=== PATIENT | female | born 1975 | race Caucasian/White ===

== ENCOUNTER 2017-05-17 15:19 | Emergency (ER) | payer OTHER ==
[~2017-05-17] VITALS: Ht 162.6 cm; Wt 83.3 kg
[~2017-05-17 15:19] MED LIST: IBUP-232 PO; ZOLO50TA PO
[2017-05-17 15:37] VITALS: BP 88/61; PULSE 118; RESP 16; TEMP 97.9; O2SAT 99
[2017-05-17] MEDS ORDERED: SODIUM CHLOR 0.9% 1000 ML INJ 1,000 ML IV SCH ×2 (15:59→16:47)
[2017-05-17] MEDS ORDERED: ONDANSETRON HCL 4 MG/2 ML VIAL IVP ONE ×2 (16:00→17:00)
[2017-05-17] MEDS ORDERED: MORPHINE SULFATE 4 MG/ML INJ IV PUSH ONE (16:00)
[2017-05-17] MEDS ORDERED: SODIUM CHLORIDE 0.9% FLUSH 10 ML FLUSH IV FLUSH PRN (16:00)
--- NOTE | 2017-05-17 16:08 | PD ---
HPI Chief Complaint: GI Complaint Time Seen by Provider: 15:59 Travel History International Travel<30 days: No Contact w/Intl Traveler<30days: No Traveled to known affect area: No History of Present Illness HPI C/O DIFFUSE ABD PAIN ONSET AT 0500 TODAY, 02/16, ASSOC WITH N/V/D/, NOT IMPROVING....NO ALLEVIATING/AGGRAVATING FACTORS PRESENTLY. ASSOCIATED SYMPTOMS OF FEVER/COUGH/RUNNY NOSE/GARCIA/CP/BACK PAIN..... ALL: PROMETHAZINE PMHX: PSHX: PFSH Past Medical History Anxiety: Yes Depression: Yes Diminished Hearing: No Genitourinary: Yes (FREQUENT UTI) Immunizations Current: Yes ?: Not LMP: 3 weeks ago Social History Alcohol Use: Yes (occas. mix drinks) Tobacco Use: No Substance Use: No Allergies-Medications (Allergen,Severity, Reaction): Coded Allergies: promethazine (Unverified Allergy, Mild, VOMITING/ ANXIOUS, 05/17/17) Reported Meds & Prescriptions Reported Meds & Active Scripts Active Reported Zoloft (Sertraline HCl) 50 Mg Tab 50 Mg PO DAILY Review of Systems Except as stated in HPI: all other systems reviewed are Neg General / Constitutional: No: Fever Eyes: No: Visual changes HENT: No: Headaches Cardiovascular: No: Chest Pain or Discomfort Respiratory: No: Shortness of Breath Gastrointestinal: Positive: Nausea, Vomiting, Diarrhea, Abdominal Pain Genitourinary: No: Dysuria Musculoskeletal: No: Pain Skin: No Rash Neurologic: No: Weakness Psychiatric: No: Depression Endocrine: No: Polydipsia Hematologic/Lymphatic: No: Easy Bruising Physical Exam Narrative GENERAL: PATIENT ACTIVELY DRY HEAVING AT BEDSIDE SKIN: Warm and dry. HEAD: Atraumatic. Normocephalic. EYES: Pupils equal and round. No scleral icterus. No injection or drainage. ENT: No nasal bleeding or discharge. Mucous membranes pink and moist. NECK: Trachea midline. No JVD. CARDIOVASCULAR: Regular rate and rhythm. RESPIRATORY: No accessory muscle use. Clear to auscultation. Breath sounds equal bilaterally. GASTROINTESTINAL: Abdomen soft, DIFFUSE ABD TT PERCUSSION, nondistended. MUSCULOSKELETAL: Extremities without clubbing, cyanosis, or edema. No obvious deformities. NEUROLOGICAL: Awake and alert. No obvious cranial nerve deficits. Motor grossly within normal limits. Five out of 5 muscle strength in the arms and legs. Normal speech. PSYCHIATRIC: Appropriate mood and affect; insight and judgment normal. Data Data Last Documented VS Vital Signs Date Time Temp Pulse Resp B/P (MAP) Pulse Ox O2 Delivery O2 Flow Rate FiO2 05/17/17 17:51 98.3 84 18 109/63 (78) 98 Room Air Orders Orders Complete Blood Count With Diff (05/17/17 15:59) Comprehensive Metabolic Panel (05/17/17 15:59) Lipase (05/17/17 15:59) Urinalysis - C+S If Indicated (05/17/17 15:59) Ct Abd/Pel W/O Iv Contrast (05/17/17 15:59) Iv Access Insert/Monitor (05/17/17 15:59) Ecg Monitoring (05/17/17 15:59) Oximetry (05/17/17 15:59) NPO (05/17/17 15:59) Morphine Inj (Morphine Inj) (05/17/17 16:00) Ondansetron Inj (Zofran Inj) (05/17/17 16:00) Sodium Chlor 0.9% 1000 Ml Inj (Ns 1000 M (05/17/17 15:59) Sodium Chloride 0.9% Flush (Ns Flush) (05/17/17 16:00) Electrocardiogram (05/17/17 15:59) Ed Urine Pregnancytest Poc (05/17/17 15:59) Hydromorphone Pf Inj (Dilaudid Pf Inj) (05/17/17 17:00) Ondansetron Inj (Zofran Inj) (05/17/17 17:00) Metronidazole 500 Mg Inj (Flagyl 500 Mg (05/17/17 18:00) Ceftriaxone Inj (Rocephin Inj) (05/17/17 17:00) Sodium Chlor 0.9% 1000 Ml Inj (Ns 1000 M (05/17/17 16:47) Bhcg Screen Qualitative (05/17/17 16:10) Labs Laboratory Tests Test 05/17/17 16:10 05/17/17 17:30 White Blood Count 22.0 TH/MM3 Red Blood Count 5.60 MIL/MM3 Hemoglobin 15.6 GM/DL Hematocrit 46.7 % Mean Corpuscular Volume 83.3 FL Mean Corpuscular Hemoglobin 27.8 PG Mean Corpuscular Hemoglobin Concent 33.3 % Red Cell Distribution Width 12.1 % Platelet Count 260 TH/MM3 Mean Platelet Volume 8.3 FL Neutrophils (%) (Auto) 90.6 % Lymphocytes (%) (Auto) 2.6 % Monocytes (%) (Auto) 3.0 % Eosinophils (%) (Auto) 0.0 % Basophils (%) (Auto) 3.8 % Neutrophils # (Auto) 19.9 TH/MM3 Lymphocytes # (Auto) 0.6 TH/MM3 Monocytes # (Auto) 0.7 TH/MM3 Eosinophils # (Auto) 0.0 TH/MM3 Basophils # (Auto) 0.8 TH/MM3 CBC Comment AUTO DIFF Differential Total Cells Counted 100 Neutrophils % (Manual) 88 % Band Neutrophils % 4 % Lymphocytes % 2 % Monocytes % 6 % Neutrophils # (Manual) 20.2 TH/MM3 Differential Comment FINAL DIFF MANUAL Blood Urea Nitrogen 27 MG/DL Creatinine 0.94 MG/DL Random Glucose 158 MG/DL Total Protein 8.5 GM/DL Albumin 4.2 GM/DL Calcium Level 9.8 MG/DL Alkaline Phosphatase 91 U/L Aspartate Amino Transf (AST/SGOT) 28 U/L Alanine Aminotransferase (ALT/SGPT) 33 U/L Total Bilirubin 1.2 MG/DL Sodium Level 136 MEQ/L Potassium Level 4.0 MEQ/L Chloride Level 102 MEQ/L Carbon Dioxide Level 19.5 MEQ/L Anion Gap 15 MEQ/L Estimat Glomerular Filtration Rate 66 ML/MIN Lipase 62 U/L Beta HCG, Qualitative LESS THAN 1 MIU/ML Urine Collection Type CLEAN CATCH Urine Color YELLOW Urine Turbidity CLEAR Urine pH 6.0 Urine Specific [place] GREATER THAN 1.035 Urine Protein NEG mg/dL Urine Glucose (UA) NEG mg/dL Urine Ketones 40 mg/dL Urine Occult Blood SMALL Urine Nitrite NEG Urine Bilirubin NEG Urine Leukocyte Esterase NEG Urine RBC 0-3 /hpf Urine WBC 0-2 /hpf Urine Squamous Epithelial Cells 0-5 /hpf Microscopic Urinalysis Comment CULT NOT INDICATED MDM Medical Decision Making Medical Screen Exam Complete: Yes Emergency Medical Condition: Yes Medical Record Reviewed: Yes Differential Diagnosis GASTROENTERITIS V PANCREATITIS V HEPATITIS V ELECTROLYTE ABNL Narrative Course LEUKOCYTOSIS WITH NEUTROPHILIA SUGGESTIVE OF BACTERIAL INFECTION...NORMAL LIPASE /LFT'S.... Diagnosis Primary Impression: ACUTE BACTERIAL GASTROENTERITIS Patient Instructions: Gastroenteritis (ED), General Instructions Scripts Codeine-Acetaminophen (Codeine-Acetaminophen) 30-300 mg Tab 1 TAB PO Q4H Y for PAIN for 3 Days, #18 TAB 0 Refills Prov: Krunal Calhoun MD 05/17/17 Ondansetron Odt (Zofran Odt) 4 Mg Tab 4 MG SL Q6HR Y for Nausea/Vomiting, #20 TAB 0 Refills Prov: Krunal Calhoun MD 05/17/17 Metronidazole (Flagyl) 500 Mg Tab 500 MG PO TID for Infection for 5 Days, #15 TAB 0 Refills Prov: Krunal Calhoun MD 05/17/17 Ciprofloxacin (Cipro) 500 Mg Tab 500 MG PO BID for Infection for 5 Days, #10 TAB 0 Refills Prov: Krunal Calhoun MD 05/17/17 Disposition: 01 DISCHARGE HOME Condition: Stable Krunal Calhoun MD May 17, 2017 16:08
[2017-05-17 16:18] LABS: AUTOMATED NEUTROPHIL # 19.9 TH/MM3 (1.8-7.7); BASOPHIL # 0.8 TH/MM3 (0-0.2); BASOPHIL % 3.8 % (0.0-2.0); HEMATOCRIT 46.7 % (35.0-46.0); LYMPH % 2.6 % (9.0-44.0); LYMPHOCYTE # 0.6 TH/MM3 (1.0-4.8); MEAN CELL VOLUME 83.3 FL (80.0-100.0); MEAN CORPUSCULAR HEMOGLOBIN 27.8 PG (27.0-34.0); MEAN CORPUSCULAR HGB CONC 33.3 % (32.0-36.0); NEUT % 90.6 % (16.0-70.0); PLATELET COUNT 260 TH/MM3 (150-450); RED CELL DISTRIBUTION WIDTH 12.1 % (11.6-17.2)
[2017-05-17 16:23] VITALS: O2SAT 100
[2017-05-17 16:24] LABS: HEMO FLAGS AUTO DIFF
[2017-05-17 16:25] VITALS: BP_SYST 138; BP_DIAS 79; BP_DIAS 9; PULSE 97; RESP 18; O2SAT 100
[2017-05-17 16:30] LABS: CHLORIDE 102 MEQ/L (98-107); SODIUM (NA) 136 MEQ/L (136-145)
[2017-05-17 16:34] LABS: ANION GAP 15 MEQ/L (5-15); BICARBONATE 19.5 MEQ/L (21.0-32.0); BLOOD UREA NITROGEN 27 MG/DL (7-18)
[2017-05-17 16:37] LABS: ALT (GPT) 33 U/L (10-53); AST (GOT) 28 U/L (15-37); GLOMERULAR FILTRATION RATE 66 ML/MIN (>89)
[2017-05-17 16:38] LABS: TOTAL BILIRUBIN ADULT 1.2 MG/DL (0.2-1.0)
[2017-05-17 16:39] LABS: ALKALINE PHOSPHATASE 91 U/L (45-117)
[2017-05-17 17:00] LABS: BANDS 4 % (0-6); NEUTROPHIL # MANUAL DIFF 20.2 TH/MM3 (1.8-7.7); POLYS (SEG NEUTROPHILS) 88 % (16-70); SCAN/DIFF FINAL DIFF MANUAL; WBC DIFF SAMPLE 100
[2017-05-17] MEDS ORDERED: HYDROmorphone HCL PF 2 MG/ML VIAL IVS ONE (17:00)
[2017-05-17] MEDS ORDERED: cefTRIAXone INJ 1,000 MG in SODIUM CHLORIDE 0.9% INJ 100 ML IV ONE (17:00)
[2017-05-17 17:12] VITALS: BP 104/62; PULSE 88; RESP 18; O2SAT 100
[2017-05-17 17:40] LABS: BLOOD, URINE SMALL (NEG); GLUCOSE,URINE NEG (NEG); KETONE, URINE 40 mg/dL (NEG); NITRITE,URINE NEG (NEG)
[2017-05-17 17:41] LABS: METHOD OF COLLECTION CLEAN CATCH; URINE COLOR YELLOW (YELLW/STRAW)
[2017-05-17 17:46] LABS: COMMENT (UR) CULT NOT INDICATED; COMMENT2 (UR) MUCOUS PRESENT; CULTURE IF INDICATED CULT NOT INDICATED; RBC, URINE 0-3 /hpf (0-3); SQUAMOUS EPITHELIAL CELL URINE 0-5 /hpf (0-5); WBC, URINE 0-2 /hpf (0-5)
[2017-05-17 17:48] LABS: BHCG SCREEN QUALITATIVE LESS THAN 1 MIU/ML (0-5)
[2017-05-17 17:51] VITALS: BP 109/63; PULSE 84; RESP 18; TEMP 98.3; O2SAT 98
[2017-05-17] MEDS ORDERED: metroNIDAZOLE 500 MG INJ 100 ML IV ONE (18:00)
--- NOTE | 2017-05-17 18:31 | RADRPT ---
EXAM DATE/TIME: 05/17/2017 17:53 [facility] COMPARISON: No previous studies available for comparison. INDICATIONS : Middle abdominal pain, nausea, vomiting diarrhea. Back pain. ORAL CONTRAST: No oral contrast ingested. RADIATION DOSE: 22.07 CTDIvol (mGy) MEDICAL HISTORY : Frequent UTI's SURGICAL HISTORY : None. ENCOUNTER: Initial ACUITY: 1 day PAIN SCALE: 8/10 LOCATION: middle abdominal, bilateral back. TECHNIQUE: Volumetric scanning of the abdomen and pelvis was performed. Using automated exposure control and ad justment of the mA and/or kV according to patient size, radiation dose was kept as low as reasonably achievable to obtain optimal diagnostic quality images. DICOM format image data is available electro nically for review and comparison. FINDINGS: LOWER LUNGS: The visualized lower lungs are clear. LIVER: Homogeneous density without lesion. There is no dilation of the biliary tree. No calcified gallston es. SPLEEN: Normal size without lesion. PANCREAS: Within normal limits. KIDNEYS: Normal in size and shape. There is no mass, stone, or hydronephrosis. ADRENAL GLANDS: Within normal limits. VASCULAR: There is no aortic aneurysm. BOWEL/MESENTERY: The stomach, small bowel, and colon demonstrate no acute abnormality. There is no free intraperitone al air or fluid. ABDOMINAL WALL: Within normal limits. RETROPERITONEUM: There is no lymphadenopathy. BLADDER: No wall thickening or mass. REPRODUCTIVE: Within normal limits. INGUINAL: There is no lymphadenopathy or hernia. MUSCULOSKELETAL: Within normal limits for patient age. CONCLUSION: 1. No acute findings abdomen and pelvic CT without contrast. Specifically no hydronephrosis or obstru ctive uropathy. No bowel obstruction, free air or free fluid. Small fat containing umbilical hernia. Arvind Kwon MD on May 17, 2017 at 18:26 Board Certified Radiologist. This report was verified electronically.
[2017-05-17] MEDS ORDERED: METR-1 PO (19:00)
[2017-05-17] MEDS ORDERED: CIPR-9 PO (19:00)
[2017-05-17] MEDS ORDERED: ZOFR4TAB3 SL (19:00)
[2017-05-17] MEDS ORDERED: CODE30TA2 PO (19:01)
[2017-05-17 19:18] VITALS: BP 104/82
--- NOTE | 2017-05-18 13:18 | EKG ---
Date Performed: 05/17/2017 Time Performed: 16:25:39 PTAGE: 42 years EKG: Sinus rhythm WITH MARKED SINUS ARRHYTHMIA MINIMAL ST DEPRESSION BORDERLINE ECG PREVIOUS TRACING : 04/22/2013 07.51 Since previous tracing, sinus arrhythmia is new, otherwise no significant change. DOCTOR: Hal Leon Interpretating Date/Time 05/18/2017 13:16:50
== END 2017-05-17 19:20 | disposition home or self-care (01) ==
LOC: PHED 15:19
DX: A04.9 Bacterial intestinal infection, unspecified (principal); D72.829 Elevated white blood cell count, unspecified; R94.31 Abnormal electrocardiogram [ECG] [EKG]; F41.8 Other specified anxiety disorders; Z87.440 Personal history of urinary (tract) infections; Z72.89 Other problems related to lifestyle
CPT/HCPCS: 74176; 80053; 81001; 83690; 84703; 85007; 85027; 93005; 96361; 96365; 96375; 96376; 99285; J0696; J1170; J2270; J2405; J7030